=== PATIENT | male | born 1940 | race Caucasian/White ===

== ENCOUNTER 2017-10-07 10:39 | Emergency (ER) | payer MEDICARE ==
[2017-10-07 11:03] VITALS: BP 137/84
[2017-10-07] MEDS ORDERED: DOXYcycline CAP(*) 100 MG PO ONE (11:44)
--- NOTE | 2017-10-07 11:49 | UC ---
Skin Complaint HPI - HPI Summary HPI Summary: 77 male presents to urgent care with complaints of leg bite to left arm that he sustained last night was staying at a hotel. Patient states he found a bag in the morning cooperative but is unsure. His concern for a tick bite and Lyme disease. Admits to it being itchy, red, swollen. States one looks like a bullseye. No other complaints. No past medical history. Has been anti-itch cream that he bought [id number], which gives some relief. - History of Current Complaint Hx Obtained From: Patient Onset/Duration: Sudden Onset, Lasting Days, Still Present Onset Severity: Mild Current Severity: Mild Pain Intensity: 0 Pain Scale Used: 0-10 Numeric Location: Other - left arm Character: Swelling, Pruritus, Redness Aggravating Factor(s): Nothing Alleviating Factor(s): Treatment [employer]: - hydrocortisone cream OTC Associated Signs & Symptoms: Positive: Rash Related History: Insect Bite/Sting, Possible Reaction to: Insect <Sarai Oliver - Last Filed: 10/07/17 11:50> <Yaneli Gibbons - Last Filed: 10/07/17 13:31> - History of Current Complaint Chief Complaint: [facility] Time Seen by Provider: 10/07/17 11:04 Stated Complaint: SKIN COMPLAINT - Allergy/Home Medications Allergies/Adverse Reactions: Allergies Allergy/AdvReac Type Severity Reaction Status Date / Time No Known Allergies Allergy Verified 10/07/17 11:04 Review of Systems Constitutional: Negative Skin: Other - bug bites Respiratory: Negative Cardiovascular: Negative All Other Systems Reviewed And Are Negative: Yes <Sarai Oliver - Last Filed: 10/07/17 11:50> PMH/Surg Hx/FS Hx/Imm Hx - Additional Past Medical History Additional PMH: denies significant PMHx - Surgical History Surgical History: Yes Surgery Procedure, Year, and Place: right elbow repair s/p trauma - Family History Known Family History: Positive: None - Social History Alcohol Use: None Substance Use Type: None Smoking Status (MU): Never Smoked Tobacco <Sarai Oliver - Last Filed: 10/07/17 11:50> Physical Exam Triage Information Reviewed: Yes Appearance: Well-Appearing, No Pain Distress, Well-Nourished Vital Signs: Initial Vital Signs Temp 98.3 F 10/07/17 10:55 Pulse 70 10/07/17 10:55 Resp 14 10/07/17 10:55 BP 137/84 10/07/17 10:55 Pulse Ox 97 10/07/17 10:55 Vital Signs Reviewed: Yes Eyes: Positive: Conjunctiva Clear Neck: Positive: Supple Respiratory: Positive: Chest non-tender, Lungs clear, Normal breath sounds, No respiratory distress Cardiovascular: Positive: RRR, No Murmur, Pulses Normal Musculoskeletal: Positive: Strength Intact Neurological Exam: Normal Skin: Positive: significant lesion(s) - appears to be 5-6 bug bites with two significant in size with pruritis on left upper arm and right hand, no drainage , no FB or signs of bug attachment. slightly edematous. rest of skin exam normal and without significant findings. faint "bullseye" appearance however not typical erythema migrans, appears to just be from scratching at bug bite <Sarai Oliver - Last Filed: 10/07/17 11:50> Vital Signs: Initial Vital Signs Temp 98.3 F 10/07/17 10:55 Pulse 70 10/07/17 10:55 Resp 14 10/07/17 10:55 BP 137/84 10/07/17 10:55 Pulse Ox 97 10/07/17 10:55 <Yaneli Gibbons - Last Filed: 10/07/17 13:31> Course/Dx - Course Course Of Treatment: appears to have been bitten by insect, possible bed bugs from hotel. however due to patient being conerned for tick bite requested prophylactic doxycycline dose. states he saw a picture of tick that looked similar to the bug he found. no tick was ever attached, has not been outside or in the [place]. educated on low risk transmission even if it was a tick. will give dose of doxy due to patient request and traimcinilone cream along with claritin/zyrtec to help with itching/symptoms. Aware of worsening signs and symptoms to watch out for. fOllow up with PCP to ensure improvement. NO other concerns at this time. Not viral, fungal or bacterial rash in nature. Very obvious bug bites. - Differential Diagnoses - Skin Complaint Differential Diagnoses: Contact Dermatitis, Local Allergic Reaction, Other - insect bite, bed bugs, spider bite, tick bite - Diagnoses Provider Diagnoses: insect bite, local allergic reaction <Sarai Oliver - Last Filed: 10/07/17 11:50> Discharge - Sign-Out/Discharge Documenting (check all that apply): Discharge - Billing Disposition and Condition Condition: GOOD Disposition: HOME <Sarai Oliver - Last Filed: 10/07/17 11:50> - Billing Disposition and Condition Condition: GOOD Disposition: HOME <Yaneli Gibbons - Last Filed: 10/07/17 13:31> - Discharge Plan Condition: Good Disposition: HOME Prescriptions: Triamcinolone 0.1% CREAM(NF) [Kenalog Cream 0.1%(NF)] 1 applic TOPICAL BID PRN # 1 tube PRN Reason: Itching Patient Education Materials: Insect Bite or Sting (ED) Referrals: Shai REVELES,Lorin Bah [Medical Doctor] - Additional Instructions: Apply cream on bites to help with itching and swelling. Also recommend claritin, zyretc or benadryl to help with itching and histamine allergic reaction. Try to avoid scratching. Cool compresses to help soothe. Any new or worsening symptoms please seek medical attention. Follow up with PCP. Attestation Statement User Type: Provider - I was available for consult. This patient was seen by the DYLAN. The patient was not presented to, seen by, or examined by me. -Lolita <Yaneli Gibbons - Last Filed: 10/07/17 13:31>
== END 2017-10-07 11:53 | disposition home or self-care (01) ==
LOC: UCCORT 10:39
DX: S40.862A Insect bite (nonvenomous) of left upper arm, initial encounter (principal); S60.561A Insect bite (nonvenomous) of right hand, initial encounter; W57.XXXA Bitten or stung by nonvenomous insect and other nonvenomous arthropods, initial encounter; Y92.59 Other trade areas as the place of occurrence of the external cause
CPT/HCPCS: 99212; A9270-GY; G0463